=== PATIENT | male | born 1940 | race Caucasian/White ===

== ENCOUNTER 2017-01-17 10:02 | Emergency (ER) | payer MEDICARE ==
[~2017-01-17 10:02] MED LIST: ACETAZOLAMIDE250 MG PO; ACIPHEX20 MG PO; ADVAIR 2501 DISK W/D PO; ADVAIR INH; ALBUTEROL0.83 MG/ML HHN; ALDACTONE25 MG PO; ALPRAZOLAM PO; AMBIEN10 MG PO; AMIODARONE PO; ASMANEX; ASPIRIN PO; ASPIRIN81 MG PO; ATARAX PO; AUGMENTIN875 M1 PO; AVANDIA PO; BUMETANIDE2 M1 PO; CALCIUM 500 + D1 TAB PO; CHLORTHALIDONE25 M1 PO; CLINDAMYCIN HC300 MG PO; CORDARONE200 M1 PO; COREG CR20 MG PO; COREG PO; CRESTOR40 MG PO; DARVOCET-N 1001 TAB PO; DEMADEX PO; DEXILANT60 MG PO; DOXEPIN TOP; DULOXETINE HCL60 MG PO; FENOFIBRATE160 MG PO; FOLIC ACID PO; FOLIC ACID1 MG PO; FORADIL12 MCG NEB; HUMIBID-LA600 MG PO; HYDROXYZINE HCL10 MG PO; IMDUR PO; IPRATROPIUM0.2 MG/ML NEB; IRON325 ( 651 PO; JANUVIA PO; JANUVIA50 MG PO; KCL PO; LASIX PO; LEVAQUIN PO; LIPITOR PO; LIPITOR80 MG PO; LORTAB 5/500 TA1 TA1 PO; METOLAZONE5 MG PO; MICRO-K PO; MIRAPEX PO; MONTELUKAST SODI5 MG PO; NEXIUM PO; OMNICEF PO; PLAVIX PO; POTASSIUM CHLO10 ME2 PO; PREDNISONE PO; PREDNISONE1 MG PO; PRINIVIL5 MG PO; RAPAFLO8 MG PO; REQUIP4 MG PO; SINGULAIR PO; SPIRIVA18 MCG INH; SYMBICORT INH; SYNTHROID PO; SYNTHROID0.2 MG PO; SYNTHROID75 MCG PO; TOBRADEX EYE DRO5 ML OP; TRICOR PO; TRILIPIX PO; ULORIC80 MG PO; ULTRAM PO; VICODIN 5/500 T1 TAB PO; VITAMIN D-32000 UNI1 PO; XOPENEX1.25 MG/0. NEB; ZETIA PO; ZYLOPRIM PO
== END 2017-01-17 10:52 | disposition home or self-care (01) ==
LOC: CED 10:02
DX: Z53.21 Procedure and treatment not carried out due to patient leaving prior to being seen by health care provider (principal)

== ENCOUNTER → 2017-05-12 | Outpatient (CLI) | payer MEDICARE | END | disposition home or self-care (01) | LOC: CLAB 10:47 | DX: E11.65 Type 2 diabetes mellitus with hyperglycemia (principal) | CPT/HCPCS: 36415; 83036 ==